=== PATIENT | male | born 1980 | race Two or more races ===

== ENCOUNTER 2021-06-24 09:05 | Emergency (ER) | payer MEDICAID, OTHER ==
[~2021-06-24] VITALS: Ht 162.6 cm; Wt 65.8 kg
[2021-06-24 10:24] VITALS: BP 118/78
== END 2021-06-24 10:57 | disposition home or self-care (01) ==
LOC: ER 09:05
DX: S02.5XXA Fracture of tooth (traumatic), initial encounter for closed fracture (principal); B35.4 Tinea corporis; K02.9 Dental caries, unspecified; X58.XXXA Exposure to other specified factors, initial encounter; Y93.89 Activity, other specified; Y92.89 Other specified places as the place of occurrence of the external cause; Y99.8 Other external cause status